=== PATIENT | female | born 1980 | race Caucasian/White ===

== ENCOUNTER → 2018-01-16 12:32 | Outpatient (CLI) | payer OTHER, SELFPAY ==
--- NOTE | 2018-01-16 12:38 | US_ITS ---
STUDY: ULTRASOUND OF THE FEMALE PELVIS - COMPLETE REASON FOR EXAM: Female, 37 years old. Enlarged uterus. LMP: December 24, 2017. TECHNIQUE: Transabdominal and Transvaginal TECHNICAL QUALITY: Adequate. COMPARISON: None. FINDINGS: The uterus is anteverted and is tilted to the left side of the pelvis. The uterus is enlarged and measures 16.8 cm x 13.2 cm x 11.0 cm. Normal uterine cervix. The endometrium is not well seen due to the multiple uterine fibroids. There is no demonstrated endometrial mass. Multiple fibroids are seen. The largest measures 5.3 cm x 4.3 cm x 3.8 cm. This is towards the right side of the midline involving the body and fundal portions of the uterus. I.U.D. - The patient does not have an I.U.D. The right ovary is non-visualized. The left ovary is non-visualized. There is no fluid in the cul-de-sac. Polycystic ovary disease: No. US/Pelvic (Non ) IMPRESSION: Enlarged fibroid uterus. Electronically Signed: Luis Alfredo Martinez MD at 14:21 EDT Tel [phone], Service support ,
[2018-01-16 16:03] LABS: Hematocrit 35.3 % (37-47); Hemoglobin 12.2 g/dl (12.0-15.0); Mean Corp Hgb Conc 34.6 g/gl (32-36); Mean Corpuscular Hgb 29.8 pg (27.0-32.0); Mean Corpuscular Volume 86.1 fL (81-99); Platelet Count 268 K/mm3 (150-450); RBC Distribution Width CV 13.4 % (11.6-14.6); RBC Distribution Width SD 41.4 fl (35.1-43.9); White Blood Count 6.2 K/mm3 (4.4-11.0)
[2018-01-16 16:05] LABS: Scan Indicated on CBC? Y/N NO
== END ==
PROVIDERS: Nurse Practitioner Women's Health; Visit Provider Obstetrics & Gynecology
DX: D25.9 Leiomyoma of uterus, unspecified (principal)
CPT/HCPCS: 36415; 76830; 76856; 85027

== ENCOUNTER 2018-06-19 05:48 | Inpatient (IN) | payer SELFPAY ==
[2018-06-12 12:57] VITALS: BP 107/66; PULSE 77; RESP 18; TEMP 37.1; O2SAT 98; BMI 28.7
[2018-06-12 15:15] LABS: Hematocrit 38.6 % (37-47); Hemoglobin 12.8 g/dl (12.0-15.0); Mean Corp Hgb Conc 33.2 g/gl (32-36); Mean Corpuscular Hgb 28.5 pg (27.0-32.0); Mean Platelet Vol. 10.6 fl (6.2-12.0); Platelet Count 276 K/mm3 (150-450); RBC Distribution Width CV 14.2 % (11.6-14.6); RBC Distribution Width SD 44.4 fl (35.1-43.9); Red Blood Count 4.49 M/mm3 (4.2-5.4); Scan Indicated on CBC? Y/N NO; White Blood Count 6.3 K/mm3 (4.4-11.0)
--- NOTE | 2018-06-18 22:09 | PCM.HP.STD ---
Problem List (1) Uterine fibroid Status: Acute Qualifiers: History of Present Illness Date of Admission: 06/19/18 Chief Complaint: Uterine fibroids The patient is a 37 year old F with a history of abnormal uterine bleeding, lower pelvic pain and enlarged uterus presents for a laparotomy with removal of leiomyomas. Patient has been consented for a laparotomy and multiple myomectomies possible hysterectomy. Patient was wanting to maintain fertility if able. 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 Denies: Diarrhea, Nausea, Vomiting Genitourinary: Reports: Dysuria, Frequency, Urgency. Denies: Hematuria Gynecological: Reports: Excessively long or heavy periods, Vaginal bleeding Musculoskeletal: Denies: Joint Pain, Muscle pain Skin: Denies: Lesions, Rash Neurological: Denies: Blurred vision, Focal weakness, Headaches Psychiatric: Denies: Anxiety, Depression Endocrine: Denies: Heat/ Cold Intolerance Hematologic/ Lymphatic: Denies: Easy Bruising, Easy Bleeding VTE Information - Inpt Only VTE Present on Admission: No - Physical Exam General: Alert, Cooperative HEENT: Normocephalic Oral: Moist Mucosa Neck: Thyroid Normal Size and Texture Lungs: Normal air movement Cardiovascular: Regular rate Abdomen: Soft, Non Tender, - - Enlarged uterus multiple fibroids present up to the umbilicus Vital Signs Temp Pulse Resp BP Pulse Ox 98.7 F 77 18 107/66 98 06/12/18 12:57 06/12/18 12:57 06/12/18 12:57 06/12/18 12:57 06/12/18 12:57 Oxygen Delivery Method Room Air Weight: 162 lb Body Mass Index (BMI) 28.7 Assessment/Plan All Active Problems (Last Reviewed 01/16/18 @ 13:46 by Reema Camilo) Uterine fibroid (Acute) 37-year-old with multiple uterine fibroids desiring preserve fertility if able Plan laparotomy and multiple myomectomies. Patient was consented regarding risks of hysterectomy, general anesthesia, damage to bowel bladder or blood vessels. Possibility of excessive blood loss and transfusion of blood products.
--- NOTE | 2018-06-18 22:12 | HP.PCM_ITS ---
Problem List (1) Uterine fibroid Status: Acute Qualifiers: History of Present Illness Date of Admission: 06/19/18 Chief Complaint: Uterine fibroids The patient is a 37 year old F with a history of abnormal uterine bleeding, low er pelvic pain and enlarged uterus presents for a laparotomy with removal of leiomyomas. Patient has been consented for a laparotomy and multiple myomectomies possible hysterectomy. Patient was wanting to maintain fertility if able. 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 Denies: Diarrhea, Nausea, Vomiting Genitourinary: Reports: Dysuria, Frequency, Urgency. Denies: Hematuria Gynecological: Reports: Excessively long or heavy periods, Vaginal bleeding Musculoskeletal: Denies: Joint Pain, Muscle pain Skin: Denies: Lesions, Rash Neurological: Denies: Blurred vision, Focal weakness, Headaches Psychiatric: Denies: Anxiety, Depression Endocrine: Denies: Heat/ Cold Intolerance Hematologic/ Lymphatic: Denies: Easy Bruising, Easy Bleeding VTE Information - Inpt Only VTE Present on Admission: No - Physical Exam General: Alert, Cooperative HEENT: Normocephalic Oral: Moist Mucosa Neck: Thyroid Normal Size and Texture Lungs: Normal air movement Cardiovascular: Regular rate Abdomen: Soft, Non Tender, - - Enlarged uterus multiple fibroids present up to the umbilicus Vital Signs Temp Pulse Resp BP Pulse Ox 98.7 F 77 18 107/66 98 06/12/18 12:57 06/12/18 12:57 06/12/18 12:57 06/12/18 12:57 06/12/18 12:57 Oxygen Delivery Method Room Air Weight: 162 lb Body Mass Index (BMI) 28.7 Assessment/Plan All Active Problems (Last Reviewed 01/16/18 @ 13:46 by Reema Camilo) Uterine fibroid (Acute) 37-year-old with multiple uterine fibroids desiring preserve fertility if able Plan laparotomy and multiple myomectomies. Patient was consented regarding risks of hysterectomy, general anesthesia, damage to bowel bladder or blood vessels. Possibility of excessive blood loss and transfusion of blood products.
[2018-06-19] VITALS (12 sets, daily range): BP systolic 94–109; BP diastolic 50–70; PULSE 69–106; RESP 14–18; TEMP 36.1–37; O2SAT 96–100; BMI 30.1
--- NOTE | 2018-06-19 | UT_PTH ---
PATIENT: ANALI BELTRAN LOC: [facility] U#:[id number] AGE/SX: 37/F ROOM: [facility] RE06/19/[address]: Dr. María Gama MD : 1980 BED: 1 DIS: 06/20/2018 SPEC #: [id number] RECD: 06/19/18 12:13 STATUS: TODD RUBIO #: [id number] ANGY: 06/19/18 00:[address]: María Gama DEPT: SURGICAL PATHOLOGY RECD BY: Steven Cordoba ENTERED: 06/19/18 12:16 SP TYPE: UTERUS OTHR DR: No Primary Care Phys Tissues: Uterus, NOS Procedures: Surgery Specimen Level V HEADER OPERATION: Laparotomy, myomectomy PRE-OP DIAGNOSIS: Uterine fibroid TISSUE SUBMITTED: Uterine fibroids MICROSCOPIC DIAGNOSIS Uterine fibroids, myomectomy: Leiomyomas (largest measuring 12 cm in greatest dimension). SJ:kaushik 06/20/18 MICROSCOPIC DESCRIPTION Slides are reviewed. GROSS DESCRIPTION Received in fixative is one container labeled with the patient's name and designated uterine fibroid. The specimen consists of multiple (~14) friend nodular pieces of tissue weighing in aggregate 566 gm and measuring 1.5 to 12 cm in greatest dimension. The largest nodule measures 12 x 9 x 9 cm and the smaller nodules measuring in aggregate 12 x 11 x 7 cm. The second largest nodule measures 8 cm in greatest dimension. Sections of these masses reveal friend whorled cut surfaces without areas of hemorrhage, necrosis or cystic degeneration. The largest nodule also shows adjacent myometrial wall which measures up to 0.8 cm in thickness. Retail Marketing Coordinator sections are submitted in six cassettes as follows: 1-3 - largest nodule (1 containing adjacent myometrial wall), 4 - intermediate size nodular mass, 5 & 6 - smaller nodular masses. / GISELLA:kaushik 06/19/18 TC:1 CPT: 88855
[2018-06-19 06:53] LABS: Internal QC Validated? YES +Cl - CLEAR BKGD; Pregnancy, Urine Negative Negative
[2018-06-19] MEDS: Vasopressin 20 UNITS/ML Vial (07:19)
--- NOTE | 2018-06-19 10:32 | OP.PCM_ITS ---
Problem List (1) Uterine fibroid Status: Acute Qualifiers: Report of Operation Date of Procedure: 06/19/18 Pre-Operative Diagnosis: Multiple uterine fibroids Post-Operative Diagnosis: Same Surgery/Procedure Performed:: Laparotomy myomectomies of 15 fibroids Description of Surgical Findings:: Enlarged uterus with multiple fibroids 20 weeks size uterus all fibroids measuring and weighing over 2000 g total. executive assistant to general counsel: Jennifer Murrieta Type of Anesthesia:: General Special Medications: Jessica Interceed and Surgicel Specimen's removed: Multiple uterine fibroids measuring a total of over 2000 g Drains: Warner Estimated Blood Loss (mL): 800 cc Fluids Replaced: Crystalloid Description of Procedure: Patient was placed under general anesthesia was prepped and draped in normal sterile fashion in the dorsal supine position with a Warner catheter and SCDs on preoperatively. A Pfannenstiel skin incision was made with a scalpel and carried through the unknowingly the fascia with the scalpel fascia was nicked in the midline incision extended laterally and the rectus bellies dissected off superiorly and inferiorly. The peritoneum was entered digitally and the incision stretched laterally. Uterus was exteriorized and multiple fibroids were noted to be present both at the fundus of the uterus and the lower back cervical uterine portion of the uterus. Ovaries and fallopian tubes were noted to be grossly within normal limits. A longitudinal incision was made across the top fundus portion of the uterus over the largest fibroid after injecting with dilute vasopressin. The fibroid was shelled out and removed and then additional tunneling was made through the myometrium to be able to access the other 14 fibroids that were removed. Extensive dissection was required and traction countertraction to be able to shell out all remaining fibroids. The endometrium was breached across the entire length of the fundus due to the largest fibroid. The uterus was then progressively closed in multiple layers of 3-0 Vicryl with closing the endometrium and then closing the myometrium around in layers and using Jessica and Surgicel to aid in hemostasis of the myometrial layers. A baseball stitch was then done to close the serosal incision and Jessica placed over and Interceed over that incision all areas were checked and noted of excellent hemostasis. There was a raw area in the cul-de-sac from scar tissue that was treated with Jessica to obtain hemostasis. Uterus was returned to the abdomen and again all areas were checked and noted to have excellent hemostasis. Peritoneum was closed with 3-0 Vicryl fascia closed with 0 loop PDS and skin closed with 3-0 Monocryl. Mepilex dressing was applied and patient was awoken and taken recovery in stable condition
[2018-06-19] MEDS: Lactated Ringers 1,000 ML 125 ML IV ×2 (13:46→21:40)
--- NOTE | 2018-06-19 15:22 | NURSING ---
Family out to nurses' station and notified this RN that they will be unable to return home tonight and were requesting a place to stay. This RN called administration and spoke with Edda. House was cleaned and Edda sent staff member with oviedo to [facility] for family. Family thankful. Notified that oviedo will need to be returned tomorrow so house can be cleaned and another family can use. Understanding verbalized.
[2018-06-19] MEDS: Ketorolac 30 MG/ML Syringe IV ×2 (15:40→22:18)
[2018-06-19] MEDS: 0.9% NaCl Peripheral Flush Adult/Peds IV (23:37)
[2018-06-20] MEDS: Ketorolac 30 MG/ML Syringe IV (03:40)
[2018-06-20] MEDS: 0.9% NaCl Peripheral Flush Adult/Peds IV (03:40)
[2018-06-20 03:49] VITALS: BP 96/54; PULSE 92; RESP 16; TEMP 36.8; O2SAT 99
--- NOTE | 2018-06-20 05:24 | DCINST_ITS ---
Discharge Diet: No Restrictions Discharge Activity: Return to Normal Activity, May Not Drive - while taking narcotic pain medications. May resume sexual activity in: 6-8 weeks Call your doctor if your incision/area has: Continuous Slow Oozing, Sudden Increased Bleeding, Increased Pain/ Swelling, Increased Redness, Foul Smelling Discharge Call your doctor if you observe: Fever of 101 or Higher Allergies/Adverse Reactions: Allergies No Known Allergies Allergy (Verified 03/18/18 10:21) Medications to take at Discharge Naproxen [Naprosyn] 250 - 500 mg PO Q8H PRN PRN #30 tablet 06/20/18 Oxycodone HCl/Acetaminophen [Percocet 5-325] 1 - 2 tablet PO Q4H PRN PRN 7 Days #28 tablet 06/20/18 The following prescriptions were given: Oxycodone HCl/Acetaminophen [Percocet 5-325] 1 - 2 tablet PO Q4H PRN PRN 7 Days #28 tablet PRN Reason: Moderate-Severe pain Naproxen [Naprosyn] 250 - 500 mg PO Q8H PRN PRN #30 tablet PRN Reason: MILD PAIN Primary Care Physician: Care Physician,No Primary [Primary Care Provider] - Test Results: Test results from this visit will be discussed in further detail at your follow- up appointment, if applicable. Please Follow Up With: María Gama MD - [phone] When: in 2 weeks
[2018-06-20 06:58] LABS: Hematocrit 26.6 % (37-47); Mean Corp Hgb Conc 33.8 g/gl (32-36); Mean Corpuscular Volume 85.8 fL (81-99); Mean Platelet Vol. 10.3 fl (6.2-12.0); Platelet Count 216 K/mm3 (150-450); RBC Distribution Width CV 14.5 % (11.6-14.6); RBC Distribution Width SD 45.4 fl (35.1-43.9); White Blood Count 8.4 K/mm3 (4.4-11.0)
[2018-06-20 06:59] LABS: Scan Indicated on CBC? Y/N NO
[2018-06-20 07:00] VITALS: O2SAT 98
[2018-06-20] MEDS: Acetaminophen 500 MG Tablet 1000 MG PO (08:09)
[2018-06-20 08:47] VITALS: BP 107/62; PULSE 97; RESP 16; TEMP 36.8; O2SAT 98
[2018-06-20] MEDS: Enoxaparin 40 MG/0.4 ML Syringe SC (10:46)
[2018-06-20] MEDS: Ketorolac 10 MG Tablet PO ×2 (12:54→17:46)
[2018-06-20 14:22] VITALS: BP 97/50; PULSE 95; RESP 18; TEMP 37.2; O2SAT 97
--- NOTE | 2018-06-20 16:02 | CASEMGMT ---
IDALIA DAHL Face to Face with patient for initial transition planning/care coordination assessment. RN CM introduced self and role at [facility]. Patient lying in bed, alert and oriented, at bedside. Patient willing to participate in assessment and is able to answer all questions appropriately. Care providers, pharmacy, and demographics verified. Patient wishes to discharge home, denies need for home health at this time. Patient states she has no further needs or concerns at this time. CM to follow for discharge planning needs that may arise. Disposition Plan: Patient to discharge home with family support and follow-up plans in place. Zoie KENDRICK, RN, CM
[2018-06-20 18:11] VITALS: BP 102/65; PULSE 84; RESP 18; TEMP 36.8; O2SAT 97
== END 2018-06-20 18:14 | disposition home or self-care (01) | DRG 743 ==
LOC: ACINP 06:00 → MS3 09:31
PROVIDERS: Admitting Provider Obstetrics & Gynecology; Referring Provider Obstetrics & Gynecology; Visit Provider Obstetrics & Gynecology
PROC: 0UB98ZZ Excision of Uterus, Via Natural or Artificial Opening Endoscopic (ICD-10-PCS; CPT 58145; principal; 2018-06-19 07:10)
DX: D25.9 Leiomyoma of uterus, unspecified (principal)
CPT/HCPCS: 36415; 81025; 85027; 86850; 86900; 88307; J7120; A4216; J2405